=== PATIENT | female | born 1980 | race Caucasian/White ===

== ENCOUNTER 2025-04-17 12:55 | Outpatient (CLI) | payer OTHER, SELFPAY ==
--- NOTE | 2025-04-17 13:10 | XR_ITS ---
WS: [id number] Exam: XR hip RT 2-3V wo/w pel* [id number] Date/Time of Exam: 04/17/2025 1:23 PM Reason For Exam: fell an acute pain to lateral hip. No fracture. Early degenerative changes of the joint compartment. Soft tissues are unremarkable. T-type IUD seen in the central pelvis. XR/XR hip RT 2-3V wo/w pel* [id number] IMPRESSION: 1. Mild DJD.
--- NOTE | 2025-04-17 13:10 | XR_ITS ---
WS: [id number] Exam: XR shoulder RT min 2V* [id number] Date/Time of Exam: 04/17/2025 1:23 PM Reason For Exam: fall and impingement pain @ lateral acromium process DLP: No fracture. The joints are preserved. Normal soft tissues. XR/XR shoulder RT min 2V* [id number] IMPRESSION: 1. Negative RIGHT shoulder.
--- NOTE | 2025-04-17 13:10 | XR_ITS ---
WS: [id number] Exam: XR wrist RT w scaphoid [id number] Date/Time of Exam: 04/17/2025 1:23 PM Reason For Exam: fall on outstretched ar. hx of scchaphoid fx DLP: No acute fracture. Soft tissues are unremarkable. Early degenerative changes at the articulation of the greater and lesser multangular and the second CMC joint. Normal soft tissues. XR/XR wrist RT w scaphoid [id number] IMPRESSION: 1. Early degenerative changes as detailed above. No fracture.
== END 2025-04-17 12:56 | disposition home or self-care (01) ==
PROVIDERS: PCP Nurse Practitioner; Visit Provider Emergency Medicine
DX: M25.551 Pain in right hip (principal); M25.531 Pain in right wrist; M25.511 Pain in right shoulder; M19.041 Primary osteoarthritis, right hand; M16.11 Unilateral primary osteoarthritis, right hip
CPT/HCPCS: 73030; 73110; 73502

== ENCOUNTER 2025-04-18 10:29 | Emergency (ER) | payer OTHER, SELFPAY ==
[2025-04-18 10:32] VITALS: BP 155/89; PULSE 78; RESP 18; TEMP 36.7; O2SAT 98
--- NOTE | 2025-04-18 10:55 | W.ED.EXTPRO ---
HPI - Extremity Problem General: Chief complaint: Extremity Injury, Upper Stated complaint: R shoulder Pain Time Seen by Provider: 04/18/25 10:50 History of Present Illness: 44-year-old female who presents emergency room with continued right shoulder pain after a fall yesterday. She said she tripped over some boxes landed on her right side. She had x-rays that urgent care yesterday but says the pain is getting worse and she could not sleep last night. Says that urgent care had told her to go to the emergency room. Related Data Previous Rx's ?Medication ?Instructions ?Recorded hydrocodone 5 mg-acetaminophen 325 1 tab PO Q6H PRN pain #20 tabs 04/18/25 mg tablet polyethylene glycol 3350 17 17 g PO DAILY #510 grams 04/18/25 gram/dose oral powder (Miralax) Allergies Allergy/AdvReac Type Severity Reaction Status Date / Time codeine Allergy Mild ADR-Itching Verified 04/17/25 12:21 Review of Systems Narrative: Constitutional symptoms: Negative except as documented in HPI. Skin symptoms: Negative except as documented in HPI. Eye symptoms: Negative except as documented in HPI. ENMT symptoms: Negative except as documented in HPI. Respiratory symptoms: Negative except as documented in HPI. Cardiovascular symptoms: Negative except as documented in HPI. Gastrointestinal symptoms: Negative except as documented in HPI. Genitourinary symptoms: Negative except as documented in HPI. Musculoskeletal symptoms: Negative except as documented in HPI. Neurologic symptoms: Negative except as documented in HPI. Psychiatric symptoms: Negative except as documented in HPI. Endocrine symptoms: Negative except as documented in HPI. [facility] PFSH: Social History Smoking and tobacco/nicotine status: never used tobacco/nicotine Physical Exam Narrative: EXAM NARRATIVE: General: Alert, no acute distress. Skin: warm and dry Head: Normocephalic Neck: Trachea midline Eye: Extraocular movements are intact. Ears, nose, mouth and throat: Oral mucosa moist Respiratory: Respirations are non-labored Musculoskeletal: Some limitation in range of motion secondary to pain. Gastrointestinal: Abdomen does not appear distended Neurological: Alert and oriented, No focal neurological deficit observed. Psychiatric: Cooperative, appropriate mood & affect. Course Vital Signs: Vital signs: Vital Signs Temperature 98.1 F 04/18/25 10:32 Pulse Rate 78 04/18/25 10:32 Respiratory Rate 18 04/18/25 10:32 Blood Pressure 155/89 04/18/25 10:32 Pulse Oximetry 98 04/18/25 10:32 Oxygen Delivery Me thod Room Air 04/18/25 10:32 MDM - Extremity (Nontraumatic) Medical Decision Making Medical decision making: Patient's reason for coming to the emergency room: shoulder pain Social determinants: I reviewed the patient's medical record. Patient was seen in urgent care at this facility yesterday. X-rays were done that were negative. She was not prescribed any medications. I reviewed the patient's current home meds Patient takes no chronic medications Alternate historians: Differential diagnosis: including but not limited to and based on the above HPI, review of systems and physical exam: Orders placed to evaluate differential diagnosis based on the above differential, HPI and physical exam With a negative x-ray and pain with active movement in the shoulder she likely has a rotator cuff injury. At this point no further workup is needed. We will provide her with some pain medication and she can follow-up with orthopedics if pain continues. Lab Review: Laboratory results were reviewed and interpreted by myself the emergency room physician. No lab work indicated today. Assessment of risk: Level of risk: Low risk patient Assessment and plan: Rotator cuff injury - Discharged home - Discussed plan with patient. Answered any questions. - Evaluation and treatment of this problem were appropriate in the emergency setting. No radiology studies performed this visit Discharge Plan Discharge Patient Disposition: Home Clinical Impression: Injury of right rotator cuff Condition: Stable Prescriptions: New hydrocodone-acetaminophen 5-325 mg tablet 1 tab PO Q6H PRN (Reason: pain) Qty: 20 0RF polyethylene glycol 3350 [Miralax] 17 gram/dose powder 17 g PO DAILY Qty: 510 0RF Rx Instructions: Take 1 scoop daily while taking pain medications. Discharge Orders: Discharge ED (Routine); Ordered 04/18/25 Ordered By: Angelica Verma Referrals: Robbie Lau FNP [Primary Care Provider, Nurse Practitioner] Kay Biswas MD [Physician, Orthopedics] - 4-7 days Referral Note: Call for an appointment. Discharge Diet: As Directed Discharge Activity: Increase activity as tolerated Patient Instructions: Rotator Cuff Injury Exercises (DC), Opioid Safety, Pain Management, Patient Portal & [facility] Instructions Activity Restrictions/Additional Instructions: Thank you for choosing [facility] for your healthcare needs today. You have been screened and evaluated and felt safe for discharge. Health conditions do change or evolve sometimes and as such it is important that you follow up with your Primary Doctor to be re checked, 3-5 days is a general good time frame for follow up. You are always welcome to return to the ED for re assessment if your symptoms are worsening or you have new concerns Print Language: Syriac Coding Level of Care Code ED Crematorium Operator for Richard Diaz
== END 2025-04-18 11:15 | disposition home or self-care (01) ==
PROVIDERS: Emergency Provider Emergency Medicine; PCP Nurse Practitioner
DX: S46.001A Unspecified injury of muscle(s) and tendon(s) of the rotator cuff of right shoulder, initial encounter (principal); W19.XXXA Unspecified fall, initial encounter
CPT/HCPCS: 99283